=== PATIENT | female | born 1980 | race Caucasian/White ===

== ENCOUNTER → 2020-04-23 | Day surgery (SDC) | payer BC ==
--- NOTE | 2020-04-24 16:11 | OP ---
DATE OF OPERATION: 04/23/2020 PREOPERATIVE DIAGNOSIS: Left breast mass 10 o'clock, 2 cm from the nipple. POSTOPERATIVE DIAGNOSIS: Left breast mass 10 o'clock, 2 cm from the nipple. PROCEDURE: Left ultrasound-guided core biopsy with bowtie clip placement. ANESTHESIA: Local. ATTENDING SURGEON: Bart Travis MD ESTIMATED BLOOD LOSS: Minimal. COMPLICATIONS: None. DESCRIPTION OF PROCEDURE: Patient was made aware of the risks and benefits of the procedure and consented. She was placed in the supine position and under sterile conditions with 2% lidocaine for local anesthesia, a small angel was made in the skin. Using a 13-gauge suction biopsy device via lateral patch under ultrasound guidance, multiple cores were obtained and submitted to pathology. Likewise under ultrasound guidance, a bowtie clip was placed into the biopsy region. Well tolerated by patient. Steri-Strips and a sterile bandage were applied. We will contact her with results. BART TRAVIS M.D. [id number]
--- NOTE | 2020-04-26 15:19 | PATH ---
Surgical Pathology Report Patient Name: VALENCIA LING [facility]. Rec. #: [id number] /Age/Gender: 1980 (Age: 39) / F Account: [id number] Location: [facility] RADIOLOGY U Taken: 04/23/2020 Received: 04/23/2020 Reported: 04/26/2020 Physicians: Sandra Zavala M.D. Specimen(s) Received LEFT BREAST CORE BX 10:00 2CM FN Clinical History Nonpalpable lesion Ultrasound findings: Highly suspicious/malignant Final Diagnosis BREAST, LEFT, 10:00, 2 CM FN, CORE BIOPSY: INVASIVE DUCTAL CARCINOMA, MODERATELY DIFFERENTIATED, MEASURING AT LEAST 5 MM IN GREATEST DIMENSION THIS MATERIAL (SEE NOTE). Note: Myoepithelial immunohistochemical markers (SMM-HC and p63) demonstrate the lack of myoepithelial cells in the invasive carcinoma. This finding supports the diagnosis. The carcinoma shows strong membranous positivity for E-Cadherin, which supports ductal phenotype. Results of ER and WI studies performed on this specimen at [facility] are as follows: ER (clone [id number] mouse monoclonal antibody by [employer]): _X_ Positive: 100 % nuclear staining with strong intensity. PgR (clone16 mouse monoclonal antibody by [employer]): _X_ Positive: 100 % nuclear staining with strong intensity. Results of Her2 & Ki67 studies will be reported separately in an addendum. Positive and negative controls (internal if applicable) show appropriate results. Formalin fixation and cold ischemic times are within current ASCO/CAP recommendations for ER, WI and Her2 testing. Electronically Signed Taylor Patel M.D. Addendum Reported: 04/28/2020 Addendum Diagnosis Results of Her2 (IHC) & Ki-67 studies performed at [place], [place] ([id number]) are as follows: Her2 IHC (EP3 from [employer], formerly known as [id number], using Stoddard Polymer Refine detection kit):0 (negative). Ki-67:< 1% (low proliferative index). Positive and negative controls (internal if applicable) show appropriate results. Taylor Patel M.D. Addendum Reported: 05/11/2020 Addendum Diagnosis Additional immunohistochemical stains p120 and Beta catenin show strong diffuse membranous staining in the carcinoma, confirming a ductal phenotype. Immunohistochemical stains p120 and Beta catenin performed on this specimen at [place], [place] ([id number]) interpreted at [facility]. Positive and negative controls (internal if applicable) show appropriate results. Loretta Crawford M.D. Gross Description Received in formalin labeled "left breast 10:00, 2 cmfn," is a 1.8 x 1.1 x 0.2 cm aggregate of multiple bland-yellow, irregular to cylindrical portions of fibroadipose tissue admixed with blood clot. The formalin is filtered and the specimen is entirely submitted in one cassette. Time to formalin fixation: < 1 minute Total formalin fixation time: Approximately 9 hours. 04/23/2020 [facility]04/23/2020
== END | disposition home or self-care (01) ==
LOC: FRADUS-SUR 08:25
PROVIDERS: ATTEND Surgery Surgical Oncology
PROC: 0HBU3ZX Excision of Left Breast, Percutaneous Approach, Diagnostic (ICD-10-PCS; principal; 2020-04-23)
DX: C50.212 Malignant neoplasm of upper-inner quadrant of left female breast (principal); Z17.0 Estrogen receptor positive status [ER+]; N63.22 Unspecified lump in the left breast, upper inner quadrant
CPT/HCPCS: 19083; 87899; 88305-TC; 88342-TC; A4648

== ENCOUNTER 2020-05-18 11:15 | Day surgery (SDC) | payer BC ==
[2020-05-06 15:05] VITALS: BMI 17.6
--- NOTE | 2020-05-17 11:13 | HP ---
Admitting History and Physical - Primary Care Physician PCP: Florencio Del Castillo - Admission Chief Complaint: left breast cancer History of Present Illness: Patient is a 39 yo female who was noted to have a suspicious mass in the left breast 10 oclock position. The patient underwent a left core bx which was c/w invasive ductal carcinoma, ER/SD positive. The patient underwent an MRI which was c/w newly dxed cancer without evidence of multifocal or contralateral dz. 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 The patient is now presenting for left breast WE, snbx, NL, lympho. History Source: Patient Limitations to Obtaining History: No Limitations - Past Medical History ...LMP: 04/16/20 Additional Past Medical History: NONE - Past Surgical History Past Surgical History: Yes: None - Smoking History Smoking history: Never smoked Have you smoked in the past 12 months: No - Alcohol/Substance Use Hx Alcohol Use: No Home Medications - Allergies Allergies/Adverse Reactions: Allergies Allergy/AdvReac Type Severity Reaction Status Date / Time No Known Allergies Allergy Verified 05/06/20 14:52 - Home Medications Home Medications: Ambulatory Orders NK [No Known Home Medication] 05/06/20 Family Medical History Family Hx Cancer: Mother (breast cancer) Other Family History: maternal aunt-breast cancer. maternal uncle-colorectal cancer. brother-testicular cancer Review of Systems - Review of Systems Constitutional: reports: No Symptoms Cardiovascular: reports: No Symptoms Respiratory: reports: No Symptoms Physical Examination Breast(s): Yes: Other (symmetrical A cup breasts with diffuse nodularity. No suspicious masses or adenopathy noted bilaterally.) Problem List - Problems (1) Breast cancer, left Code(s): C50.912 - MALIGNANT NEOPLASM OF UNSPECIFIED SITE OF LEFT FEMALE BREAST Qualifiers: Breast location: upper inner quadrant of breast Estrogen receptor status: positive Patient sex: female Qualified Code(s): C50.212 - Malignant neoplasm of upper-inner quadrant of left female breast; Z17.0 - Estrogen receptor positive status [ER+] Assessment/Plan Left breast WE with NL, snbx, possible andx with lymphoscintogram
[2020-05-18] MEDS ORDERED: LIDOCAINE HCL/PF 2% SDV 5ML VIAL ONE (12:31)
[2020-05-18] MEDS ORDERED: MIDAZOLAM HCL 2 MG/2 ML SINGLE DOSE VIAL ONE (12:31)
[2020-05-18] MEDS ORDERED: DEXAMETHASONE SOD PHOSPHATE 4 MG/1 ML VIAL ONE (12:31)
[2020-05-18] MEDS ORDERED: ONDANSETRON 4 MG/2 ML VIAL ONE ×2 (12:31→15:29)
[2020-05-18] MEDS ORDERED: PROPOFOL 20 ML ONE (12:31)
[2020-05-18] MEDS ORDERED: KETOROLAC TROMETHAMINE 30 MG/1 ML VIAL ONE (12:34)
[2020-05-18] MEDS ORDERED: ISOSULFAN BLUE 10 MG/ML VIAL SQ ONE (12:44)
[2020-05-18] MEDS ORDERED: BUPIVACAINE HCL/PF 0.25% (2.5MG/ML) 10 ML VIAL ONE (12:44)
[2020-05-18] MEDS ORDERED: ONDANSETRON 4 MG/2 ML VIAL IVPUSH PRN ×2 (12:46→15:24)
[2020-05-18] MEDS ORDERED: oxyCODONE HCL 5 MG TABLET PO PRN ×2 (12:46→15:04)
[2020-05-18] MEDS ORDERED: LACTATED RINGERS SOLUTION 1,000 ML IV SCH (13:00)
[2020-05-18] MEDS ORDERED: GUM MASTIC/STORAX/MSAL/ALCOHOL 1 DRP DROPSBTL MC ONE (15:00)
[2020-05-18] MEDS ORDERED: BUPIVACAINE HCL/PF 0.25% (2.5MG/ML) 10 ML VIAL IJ ONE (15:07)
[2020-05-18] MEDS ORDERED: KETOROLAC TROMETHAMINE 30 MG/1 ML VIAL IVPUSH PRN (15:24)
[2020-05-18] MEDS ORDERED: DEXTROSE 5%-0.45% SALINE 1,000 ML IV SCH (15:30)
[2020-05-18] MEDS ORDERED: METOCLOPRAMIDE HCL INJECTION 10 MG/2 ML VIAL IVPUSH ONE (16:58)
[2020-05-18] MEDS ORDERED: METOCLOPRAMIDE HCL INJECTION 10 MG/2 ML VIAL ONE (16:59)
[2020-05-18] MEDS ORDERED: PROMETHAZINE HCL 25 MG/1 ML VIAL ONE (17:35)
[2020-05-18] MEDS ORDERED: PROMETHAZINE HCL 25 MG/1 ML VIAL IVPUSH PRN (17:39)
[2020-05-18 19:17] VITALS: BP 104/62; PULSE 71; TEMP 98.2
--- NOTE | 2020-05-19 20:05 | OP ---
DATE OF OPERATION: 05/18/2020 PREOPERATIVE DIAGNOSIS: Left breast cancer upper inner quadrant. POSTOPERATIVE DIAGNOSIS: Left breast cancer upper inner quadrant. PROCEDURE: Left breast partial mastectomy with sentinel lymph node biopsy and 5 x 4 tissue transfer closure. ANESTHESIA: General laryngeal mask airway. PRIMARY SURGEON: Joselito Del Castillo MD. SUPERVISOR STITCHING DEPARTMENT: PACO Lu. COMPLICATIONS: There were no complications. DESCRIPTION OF PROCEDURE: Briefly, the patient is a 39-year-old nulliparous white female of [place] descent with a strong family history with her mother who had breast cancer at age 61, her maternal aunt had breast cancer at age 50 and maternal uncle had colorectal cancer at age 50. Her brother had testicular cancer. The patient underwent a mammography and ultrasound on April 20, 2020, showing a left breast upper inner quadrant 8-mm suspicious metastasis seen in the 10 o'clock region. Ultrasound guided core biopsy performed on April 23, 2020, showed a moderately differentiated invasive duct cancer which was ER/NC positive, HER2/carmella negative, with a low Ki-67. MRI showed her cancer to be localized. 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 She was advised to undergo a left breast partial mastectomy with Magseed localization and sentinel lymph node biopsy. She was brought in for the procedure on May 18, 2020. She first underwent the lymphoscintigraphy at [facility] and was brought to [place] where the Magseed was placed in the left breast upper inner quadrant. She was then brought to the holding area. In the holding area, site verification was made and informed consent was obtained. She did undergo COVID testing preoperatively which was negative. She was brought into the operating room and laid on the OR table in a supine position. Venodynes were placed on the lower extremities prior to induction. She received 1 g Ancef prior to incision. She underwent general laryngeal mask airway anesthesia. The left breast was sterilely prepped and draped in the usual fashion and 3 mL of Lymphazurin blue were injected intradermally and peritumorally around the needle localization site. Massage was instituted. Incision was made just below the hair-bearing area of the left axilla, and the Neoprobe was used to direct the sentinel lymph node biopsy. Three sentinel lymph nodes were found in the level 1 region of the left axilla. The first sentinel lymph node was blue and hot with a 10-second gamma count of 8954. The second sentinel lymph node was hot with a 10-second gamma count of 6519. The third sentinel lymph node was just hot with a 10-second gamma count of 1510. Background counts after removing these 3 nodes was 877, and no other blue or hot nodes were found. Hemostasis was achieved. The axillary wound was closed using an interrupted 0 plain suture to close the deep subcutaneous tissue. The skin was closed using interrupted 3-0 deep dermal Vicryl suture, and a running 4-0 subcuticular Biosyn suture. The wide excision was then undertaken on the upper inner aspect of the left breast through a curvilinear incision. Dissection was undertaken using the Magseed probe to find the Magseed, which was in the upper inner aspect of the left breast. The breast tissue were completely removed from around the Magseed all the way down to the pectoralis major muscle. The specimen was oriented with a long lateral, short superior suture and specimen radiographs showed removal of the clip in question. Hemostasis was achieved and separate margins were then taken on the superior, inferior, medial, lateral, deep, and anterior margins with the suture marking the biopsy cavity side. The undermined for a 5 x 4 cm tissue transfer closure. The breast tissue was reapproximated using 2-0 plain suture. The skin was closed using interrupted 3-0 deep dermal Vicryl suture and a running 4-0 subcuticular Biosyn suture. Mastisol, Steri-Strips were applied over the wound, then she was placed in a surgical bra postoperatively. All sponge, needle counts were correct at the end of the case. Estimated blood loss was about 20 mL. The patient had laryngeal mask airway tube removed and will be recovered in the post anesthesia care unit and will be discharged home the same day once discharge criteria are met. She is to follow up in the office in 1 week for formal wound pathology check. JOSELITO DEL CASTILLO M.D. [id number]
--- NOTE | 2020-05-25 15:29 | PATH ---
Surgical Pathology Report Patient Name: VALENCIA LING [facility]. Rec. #: [id number] /Age/Gender: 1980 (Age: 39) / F Account: [id number] Location: [facility] AMBULATORY Taken: 05/18/2020 Received: 05/18/2020 Reported: 05/25/2020 Physicians: Florencio Del Castillo M.D. Specimen(s) Received A: LEFT AXILLARY SENTINEL NODE #1 B: LEFT AXILLARY SENTINEL NODE #2 C: LEFT AXILLARY SENTINEL NODE #3 D: LEFT BREAST SUPERIOR MARGIN E: LEFT BREAST LATERAL MARGIN F: LEFT BREAST INFERIOR MARGIN G: LEFT BREAST MEDIAL MARGIN H: LEFT BREAST POSTERIOR MARGIN I: LEFT BREAST ANTERIOR MARGIN J: LEFT BREAST WIDE EXCISION Clinical History IDC left 11:00 IDC Final Diagnosis A. lymph node, left axillary sentinel #1, excision: One lymph node, negative for metastatic carcinoma (0/1). B. lymph node, left axillary sentinel #2, excision: One lymph node, negative for metastatic carcinoma (0/1). C. lymph node, left axillary sentinel #3, excision: One lymph node, negative for metastatic carcinoma (0/1). D. breast, superior margin, excision: Benign breast tissue. E. breast, left, lateral margin, excision: Benign breast tissue. F. breast, left, inferior margin, excision: Focal atypical ductal hyperplasia (ALH) and lobular carcinoma in situ (LCIS), CLASSICAL TYPE. (See note) Note: E-Cadherin immunostain (performed at [facility]) is non-contributory as the focus of LCIS is no longer present on the immunostained slide. G. breast, left, medial margin, excision: Lobular carcinoma in situ (LCIS). (See note) Note: E-Cadherin immunostain (performed at [facility]) is negative in the foci of LCIS, which supports lobular phenotype. H. breast, left, posterior margin, excision: Skeletal muscle and fibroadipose tissue; negative for malignancy. I. breast, left, anterior margin, excision: Benign fibroadipose tissue. J. breast, left, wide excision: Invasive ductal carcinoma, WELL differentiated with lobular growth features (tubule score: 2/3, nuclear grade: 2/3, mitotic score: 1/3, total score: 5/9; Austin grade 1). (See note) Invasive carcinoma measures 1.1 cm in greatest dimension, microscopically. Focal ductal carcinoma in situ (DCIS), solid and cribriform type, intermediate nuclear grade. Invasive carcinoma is close to (< 1 mm) the anterior margin. Surgical margins are uninvolved by DCIS; DCIS is aT 3 mm from the closest (medial) margin. see specimens D-I FOR final margins. No lymphovascular invasion is identified. Remaining breast tissue shows lobular carcinoma in situ (LCIS), atypical ductal hyperplasia (ADH), flat epithelial atypia (FEA), columnar cell change and fibrocystic changes. Prior biopsy site changes are present. Pathologic stage (pTNM): pT1c pN0. Note: Invasive carcinoma shows strong membranous positivity for E-Cadherin (performed on J4 & J7 at [facility]). The foci of DCIS show strong membranous positivity for E-Cadherin, while foci of LCIS are negative. In addition, p120 Catenin and B-Catenin immunostains were performed on prior core biopsy ([id number]) at [place], [place] ([id number]) and demonstrate strong membranous positivity in the tumor cells. These findings support ductal phenotype. Comments Breast Invasive Carcinoma: Surgical Pathology Case Summary (Based on AJCC TNM 8 th edition) Procedure _X_ Excision (less than total mastectomy) Specimen Laterality _X_ Left Tumor Size _X_ Greatest dimension of largest invasive focus >1 mm (millimeters): 11 mm Histologic Type _X_ Invasive ductal carcinoma with lobular growth features Histologic Grade (Austin Histologic Score) Glandular (Acinar)/Tubular Differentiation _X_ Score 2 (10% to 75% of tumor area forming glandular/tubular structures) Nuclear Pleomorphism _X_ Score 2 Mitotic Rate _X_ Score 1 Overall Grade _X_ Grade 1 (scores of 3,4 or 5) Tumor Focality _X_ Single focus of invasive carcinoma Ductal Carcinoma In Situ (DCIS) _X_ DCIS is present in specimen _X_ Negative for extensive intraductal component (EIC) Tumor Extension Skin _X_ Skin is not present. Skeletal Muscle _X_ Skeletal muscle is free of carcinoma Margins Invasive Carcinoma Margins _X_ Uninvolved by invasive carcinoma Distance from closest margin (millimeters): < 1 mm from anterior margin in wide excision J; final anterior margin I is negative for carcinoma. DCIS Margins _X_ Uninvolved by DCIS Distance from closest margin (millimeters): 3 mm from medial margin in wide excision J. Final medial margin G is negative for DCIS. Regional Lymph Nodes _X_ Uninvolved by tumor cells Number of Lymph Nodes Examined: 3 Number of [place] Nodes Examined: 3 Treatment Effect in the Breast _X_ No known presurgical therapy Treatment Effect in the Lymph Nodes _X_ No lymph node metastases and no fibrous scarring or histiocytic aggregates in the nodes. Lymphovascular Invasion _X_ Not identified Pathologic Stage Classification (pTNM, AJCC 8th Edition) Primary Tumor (Invasive Carcinoma) (pT) _X_ pT1c: Tumor >10 mm but =20 mm in greatest dimension Regional Lymph Nodes (pN) Category (pN) _X_ pN0: No regional lymph node metastasis identified or ITCs only Biomarker Studies Results of ER and OR studies performed on prior biopsy ([id number]) at [facility] are as follows: ER (clone [id number] mouse monoclonal antibody by [employer]): _X_ Positive: 100 % nuclear staining with strong intensity. PgR (clone16 mouse monoclonal antibody by [employer]): _X_ Positive: 100 % nuclear staining with strong intensity. Results of Her2 (IHC) & Ki-67 studies performed on prior biopsy ([id number] 650) at [place], [place] ([id number]) are as follows: Her2 IHC (EP3 from [employer], formerly known as [id number], using [employer] Polymer Refine detection kit): 0 (Negative). Ki67: < 1% (low proliferative index). Electronically Signed Taylor Patel M.D. Gross Description A. Received in formalin labeled "left axillary sentinel node #1," is a 1.0 x 0.7 x 0.2 cm bland lymph node. The specimen is submitted in toto in one cassette. B. Received in formalin labeled "left axillary sentinel lymph node #2," is a 1.8 x 0.7 x 0.2 cm bland-yellow portion of soft tissue, possibly containing a lymph node. The specimen is submitted in toto in one cassette. C. Received in formalin labeled "left axillary sentinel node #3," is a 1.7 x 1.0 x 0.2 cm bland-yellow portion of soft tissue, possibly containing a lymph node. The specimen is submitted in toto in one cassette. D. Received in formalin labeled "left breast superior margin," is a 1.7 x 1.0 x 0.4 cm bland-yellow, irregular portion of fibroadipose tissue. There is a suture marking the biopsy cavity side, per the surgeon. The new margin is inked blue and the specimen is serially sectioned. The specimen is entirely submitted in 2 cassettes. E. Received in formalin labeled "left breast lateral margin," is a 1.7 x 1.2 x 0.4 cm portion of fibroadipose tissue with a suture marking the biopsy cavity side, per the surgeon. The new margin is inked blue and the specimen is serially sectioned. The specimen is entirely submitted in 2 cassettes. F. Received in formalin labeled "left breast inferior margin," is a 1.7 x 1.4 x 0.5 cm portion of fibroadipose tissue with a suture marking the biopsy cavity side, per the surgeon. The new margin is inked blue and the specimen is serially sectioned. The specimen is entirely submitted in 2 cassettes. G. Received in formalin labeled "left breast medial margin," is a 1.5 x 1.3 x 0.5 cm portion of fibroadipose tissue with a suture marking the biopsy cavity side, per the surgeon. The new margin is inked blue and the specimen is serially sectioned. The specimen is entirely submitted in 2 cassettes. H. Received in formalin labeled "left breast posterior margin," is a 0.8 x 0.6 x 0.4 cm portion of fibroadipose tissue with a suture marking the biopsy cavity side, per the surgeon. The new margin is inked blue and the specimen is serially sectioned. The specimen is entirely submitted in one cassette. I. Received in formalin labeled "left breast anterior margin," is a 1.5 x 0.8 x 0.3 cm portion of fibroadipose tissue with a suture marking the biopsy cavity side, per the surgeon. The new margin is inked blue and the specimen is serially sectioned. The specimen is entirely submitted in 2 cassettes. J. Received in formalin, labeled "left breast wide excision," is a 5.5 x 2.7 x 1.7 cm. bland-yellow, irregular, portion of fibroadipose tissue. There is no needle localization wire present. There is a short suture marking the superior aspect and a long suture marking the lateral aspect, per the surgeon. There is no skin or nipple present. The specimen is inked as follows: superior and lateral blue; inferior green; medial yellow; anterior red; deep black. The specimen is serially sectioned from superior to inferior. Sectioning reveals a 1.0 x 1.0 x 0.6 cm bland, ill-defined mass containing a hernandez metallic biopsy clip. The mass is focally 0.2 cm from the lateral margin, 0.3 cm from the deep margin and 0.4 cm from the anterior margin. The remaining breast parenchyma displays diffuse dense white fibrous tissue. The specimen is entirely and sequentially submitted in 11 cassettes with the superior margin in cassette 1, the inferior margin in cassette 11 and the mass in cassettes 6-7. Time to formalin fixation: 7 minutes Total formalin fixation time: Approximately 28 hours. 05/19/2020 [facility]05/19/2020
== END 2020-05-18 19:17 | disposition home or self-care (01) ==
LOC: FASU 11:15
PROVIDERS: ATTEND Surgery Surgical Oncology
PROC: 0HBU0ZZ Excision of Left Breast, Open Approach (ICD-10-PCS; principal; 2020-05-18 13:48)
PROC: 0JX60ZC Transfer Chest Subcutaneous Tissue and Fascia with Skin, Subcutaneous Tissue and Fascia, Open Approach (ICD-10-PCS; 2020-05-18 13:48)
DX: C50.212 Malignant neoplasm of upper-inner quadrant of left female breast (principal); Z17.0 Estrogen receptor positive status [ER+]; Z80.3 Family history of malignant neoplasm of breast
CPT/HCPCS: 19281; 76098-TC-FY; 77065-TC; 78195-TC; 84703; 88307-TC; 88341-TC; 88342-TC; 94760; A9541